=== PATIENT | female | born 1980 | race Two or more races ===

== ENCOUNTER 2018-01-02 09:27 | Emergency (ER) | payer MEDICARE, MEDICAID ==
[~2018-01-02] VITALS: Ht 157.5 cm; Wt 65.8 kg
[2018-01-02 09:37] VITALS: BP 106/69
[2018-01-02] MEDS ORDERED: PROTONIX20 MG ORAL (09:42)
[2018-01-02] MEDS ORDERED: SENSIPAR30 MG ORAL (09:42)
[2018-01-02] MEDS ORDERED: AMITRIPTYLINE H10 MG ORAL (09:42)
[2018-01-02] MEDS ORDERED: GABAPENTIN300 MG/61 ORAL (09:42)
[2018-01-02] MEDS ORDERED: CALCIUM500 M3 PO (09:42)
--- NOTE | 2018-01-02 09:44 | Emergency Room Report ---
History of Present Illness General Chief Complaint: Syncope Source: Patient Present Illness HPI This patient states that she has a history of end-stage renal disease and underwent dialysis this morning. She states that she believes they dialyzed for 2 fast. She states she was in her normal state of health this morning. She states while she was driving home in a van she started feeling lightheaded. She states that that the last thing she remembers. She is brought in by EMS. Per report, patient had a syncopal episode. Patient received 500 and Wells of normal saline by EMS. They were concerned because she had low systolic blood pressures. The patient states that her typical systolic blood pressures being between 101 10 systolic. She states that she feels back to baseline now. She denies nausea or vomiting. She denies chest pain or short of breath. She denies palpitations. She denies abdominal pain. She has no other complaints. Allergies: Coded Allergies: PENICILLINS (Unverified Allergy, Unknown, 01/02/18) Patient History Past Medical History: see triage record, renal disease, dialysis Social History: Denies: smoking, alcohol use, drug use Last Menstrual Period: 12/06/17 Reviewed Nursing Documentation: PMH: Agreed; PSxH: Agreed Nursing Documentation-PMH Past Medical History: No History, Except For Review of Systems All Other Systems: negative except mentioned in HPI Physical Exam Vital Signs Date Time Temp Pulse Resp B/P (MAP) Pulse Ox O2 Delivery O2 Flow Rate FiO2 01/02/18 09:17 97.6 75 14 95/69 99 Room Air 97.5 Sp02 EP Interpretation: reviewed, normal General Appearance: no apparent distress, alert, GCS 15, non-toxic Head: normocephalic, atraumatic Eyes: bilateral eye normal inspection, bilateral eye PERRL ENT: hearing grossly normal, normal pharynx, no angioedema, normal voice Neck: full range of motion, supple/symm/no masses Respiratory: chest non-tender, lungs clear, normal breath sounds, speaking full sentences Cardiovascular #1: regular rate, rhythm, no edema Gastrointestinal: normal bowel sounds, non tender, soft, non-distended, no guarding, no rebound Rectal: deferred Musculoskeletal: back normal, gait/station normal, normal range of motion, non- tender Neurologic: alert, oriented x3, responsive, motor strength/tone normal, sensory intact, speech normal Psychiatric: judgement/insight normal, memory normal, mood/affect normal, no suicidal/homicidal ideation Skin: normal color, no rash, warm/dry, well hydrated Medical Decision Making Diagnostic Impression: Primary Impression: Syncope ER Course I suspect the syncope that the patient is presenting with is a nonemergent in etiology. Regarding the history, the patient has no history of structural heart disease or coronary artery disease, no family history of sudden , has no shortness of breath, and the syncope is not exertional. On physical exam , the patient is not hypotensive, has no findings of CHF, and no significant cardiac murmur suggestive of valvular heart disease or cardiac outflow obstruction. The patient reports no history of seizure or head trauma. EKG showed no evidence of concerning findings of QT prolongation, Brugada syndrome or significant ST changes suggestive of acute ischemia, dysrhythmias or significant conduction abnormalities. On laboratory evaluation, blood sugar was normal and the patient is not anemic. The patient was counseled that, though unlikely, the possibility of an emergent cause of syncope may be present and that the patient should return immediately if symptoms persist or worsen. I believe the patient is stable for discharge to followup with her PMD for further workup. Laboratory Tests Test 01/02/18 09:30 White Blood Count 7.9 K/UL (4.8-10.8) Red Blood Count 3.90 M/UL (4.20-5.40) L Hemoglobin 12.0 G/DL (12.0-16.0) Hematocrit 36.2 % (37.0-47.0) L Mean Corpuscular Volume 93 FL (80-99) Mean Corpuscular Hemoglobin 30.8 PG (27.0-31.0) Mean Corpuscular Hemoglobin Concent 33.2 G/DL (32.0-36.0) Red Cell Distribution Width 12.5 % (11.6-14.8) Platelet Count 223 K/UL (150-450) Mean Platelet Volume 10.1 FL (6.5-10.1) Neutrophils (%) (Auto) 76.6 % (45.0-75.0) H Lymphocytes (%) (Auto) 17.4 % (20.0-45.0) L Monocytes (%) (Auto) 4.8 % (1.0-10.0) Eosinophils (%) (Auto) 0.6 % (0.0-3.0) Basophils (%) (Auto) 0.7 % (0.0-2.0) Prothrombin Time 9.4 SEC (9.30-11.50) Prothrombin Time INR 0.9 (0.9-1.1) PTT 27 SEC (23-33) Sodium Level 134 MMOL/L (136-145) L Potassium Level 3.6 MMOL/L (3.5-5.1) Chloride Level 98 MMOL/L (98-107) Carbon Dioxide Level 23 MMOL/L (21-32) Anion Gap 13 mmol/L (5-15) Blood Urea Nitrogen 21 mg/dL (7-18) H Creatinine 5.6 MG/DL (0.55-1.30) H Estimate Glomerular Filtration Rate 8.6 mL/min (>60) Glucose Level 89 MG/DL (74-106) Calcium Level 9.4 MG/DL (8.5-10.1) Total Bilirubin 0.2 MG/DL (0.2-1.0) Aspartate Amino Transferase (AST) 12 U/L (15-37) L Alanine Aminotransferase (ALT) 10 U/L (12-78) L Alkaline Phosphatase 131 U/L (46-116) H Total Creatine Kinase 63 U/L (26-308) Creatine Kinase MB < 0.5 NG/ML (0.0-3.6) Creatine Kinase MB Relative Index 0.7 Troponin I 0.000 ng/mL (0.000-0.056) Total Protein 7.6 G/DL (6.4-8.2) Albumin 3.5 G/DL (3.4-5.0) Globulin 4.1 g/dL Albumin/Globulin Ratio 0.9 (1.0-2.7) L EKG Diagnostic Results Rate: normal Rhythm: NSR ST Segments: no acute changes Rhythm Strip Diag. Results EP Interpretation: yes Rate: 70's Rhythm: NSR, no PVC's Last Vital Signs Date Time Temp Pulse Resp B/P (MAP) Pulse Ox O2 Delivery O2 Flow Rate FiO2 01/02/18 09:37 97.5 74 16 106/69 99 Room Air 97.5 Disposition: HOME, SELF-CARE Condition: Improved Patient Instructions: Syncope Raquel Borrego DO Jan 02, 2018 09:44
[2018-01-02 09:46] LABS: BASOPHILS % (AUTO) 0.7 % (0.0-2.0); EOSINOPHILS % (AUTO) 0.6 % (0.0-3.0); HEMATOCRIT 36.2 % (37.0-47.0); LYMPHOCYTES % (AUTO) 17.4 % (20.0-45.0); MEAN CORPUSCULAR VOLUME 93 FL (80-99); MONOCYTES % (AUTO) 4.8 % (1.0-10.0); NEUTROPHILS % (AUTO) 76.6 % (45.0-75.0); PLATELET COUNT 223 K/UL (150-450); RED CELL DISTRIBUTION WIDTH 12.5 % (11.6-14.8); WHITE BLOOD COUNT 7.9 K/UL (4.8-10.8)
[2018-01-02 09:54] LABS: ANION GAP 13 mmol/L (5-15); BLOOD UREA NITROGEN 21 mg/dL (7-18); CALCIUM 9.4 MG/DL (8.5-10.1); CARBON DIOXIDE 23 MMOL/L (21-32); CHLORIDE 98 MMOL/L (98-107); CREATININE 5.6 MG/DL (0.55-1.30); INR 0.9 (0.9-1.1); POTASSIUM 3.6 MMOL/L (3.5-5.1); SODIUM 134 MMOL/L (136-145)
--- NOTE | 2018-01-02 09:58 | Diagnostic Imaging Report ---
Indication: Shortness of breath Technique: One view of the chest Comparison: none Findings: Lungs and pleural spaces are clear. Heart size is normal. There is a right chest tunneled dialysis catheter Impression: No acute process
[2018-01-02 10:10] LABS: ALANINE AMINOTRANSFERASE 10 U/L (12-78); ALBUMIN 3.5 G/DL (3.4-5.0); ALBUMIN/GLOBULIN RATIO 0.9 (1.0-2.7); ALKALINE PHOSPHATASE 131 U/L (46-116); ASPARTATE AMINO TRANSFERASE 12 U/L (15-37); BILIRUBIN,TOTAL 0.2 MG/DL (0.2-1.0); CKMB < 0.5 NG/ML (0.0-3.6); CREATINE KINASE 63 U/L (26-308)
[2018-01-02 11:22] VITALS: BP 115/70
--- NOTE | 2018-01-03 14:11 | Cardiology Report ---
APPROVED REPORT EKG Measurement Heart [id number] Normal sinus rhythm Normal ECG
== END 2018-01-02 11:22 | disposition left against medical advice (07) ==
LOC: EDBD 09:27 → EMR 09:53
DX: R55 Syncope and collapse (principal); Z88.0 Allergy status to penicillin; N18.6 End stage renal disease; Z99.2 Dependence on renal dialysis
CPT/HCPCS: 36415; 71045; 80053; 82550; 82553; 84484; 85025; 85610; 85730; 93005; 99283